=== PATIENT | female | born 1990 | race Caucasian/White ===

== ENCOUNTER 2016-11-02 23:57 | Emergency (ER) | payer OTHER ==
[~2016-11-02] VITALS: Ht 157.5 cm; Wt 54.5 kg
[~2016-11-02 23:57] MED LIST: FLEXERIL10 MG PO; MOTRIN600 MG PO
[2016-11-03] MEDS ORDERED: ZOFRAN ODT4 MG PO (02:02)
[2016-11-03] MEDS ORDERED: FLONASE16 G1 BOTH NARES (02:02)
[2016-11-03] MEDS ORDERED: ALLEGRA-D 121 TABLET PO (02:02)
[2016-11-03 02:05] VITALS: BP 149/82
== END 2016-11-03 02:06 | disposition home or self-care (01) ==
LOC: EXP 23:57 → EME 23:57 → EXP 11-03 02:06
DX: J06.9 Acute upper respiratory infection, unspecified (principal); J32.9 Chronic sinusitis, unspecified; R11.2 Nausea with vomiting, unspecified
CPT/HCPCS: 99281; 99283